=== PATIENT | female | born 1950 | race Caucasian/White ===

== ENCOUNTER 2019-04-20 11:38 | Emergency (ER) | payer BC ==
[2019-04-20 12:44] VITALS: BP 105/88
--- NOTE | 2019-04-20 12:57 | UC ---
Hand/Wrist HPI - HPI Summary HPI Summary: 69-year-old female presents with left wrist pain. Patient was picking up tree limbs in her yard, pulled on one and fell onto her left wrist. Reporting 5/10 achy pain located in the distal wrist. No other injuries. - History Of Current Complaint Chief Complaint: UCUpperExtremity Stated Complaint: ARM INJURY Time Seen by Provider: 04/20/19 12:46 Hx Last Menstrual Period: MENOPAUSE Pain Intensity: 5 - Allergies/Home Medications Allergies/Adverse Reactions: Allergies Allergy/AdvReac Type Severity Reaction Status Date / Time codeine Allergy Vomiting Verified 04/20/19 12:53 ibuprofen [From Motrin] Allergy Vomiting Verified 04/20/19 12:53 potassium Allergy GI Upset Verified 04/20/19 12:53 BP MEDICINE Allergy Rash Uncoded 04/20/19 12:53 Home Medications: Home Medications Omeprazole 1 tab PO DAILY 04/20/19 [History Confirmed 04/20/19] PMH/Surg Hx/FS Hx/Imm Hx Cardiovascular History: Hypertension GI/ History: Gastroesophageal Reflux - Surgical History Surgical History: None - Family History Known Family History: Positive: Hypertension, Other - BREAST CANCER - Social History Alcohol Use: Occasionally Substance Use Type: None Smoking Status (MU): Never Smoked Tobacco Review of Systems All Other Systems Reviewed And Are Negative: Yes Musculoskeletal: Positive: Arthralgia Physical Exam - Summary Physical Exam Summary: General: Well appearing, no distress Cardiovascular: Skin is well perfused Pulmonary: No respiratory distress, no tachypnea Abdomen: Non-distended Skin: Ecchymosis to L palm MSK: LUE: No tenderness or deformities of the elbow or forearm, tenderness to distal radius with swelling. Motor: Opposition of thumb and first finger intact Able to cross first and second finger Able to extend thumb Able to flex and extend wrist Able to spread fingers Sensory: Sensation intact in 1st, 2nd, and 5th digits Pulse: 2+ radial pulse intact. Brisk cap refill. Psych: Normal affect Neuro: A&Ox3 Vital Signs: Initial Vital Signs Temp 36.6 C 04/20/19 12:41 Pulse 66 04/20/19 12:41 Resp 16 04/20/19 12:41 BP 105/88 04/20/19 12:41 Pulse Ox 98 04/20/19 12:41 Re-Evaluation - Re-Evaluation First Eval Re-Evaluation Time: 13:25 Change: Improved Comment: XR negative for acute fracture, patient will repeat x-ray in 2 weeks if she has persistent pain Hand/Wrist Course/Dx - Course Course Of Treatment: 69-year-old female presents with tenderness to the left distal radius, no snuffbox tenderness. Check a XR wrist for fracture - Differential Dx/Diagnosis Provider Diagnosis: Wrist pain, left Discharge - Sign-Out/Discharge Documenting (check all that apply): Patient Departure All imaging exams completed and their final reports reviewed: Yes - Discharge Plan Condition: Stable Disposition: HOME Patient Education Materials: Wrist Injury (ED) Referrals: Elvi Ackerman NP [Primary Care Provider] - Additional Instructions: You were seeen at urgent care for wrist pain. Your x-ray did not show any fractures. If you've persistent pain in 2 weeks please a repeat x-ray. If any lab work or imaging was not completed at the time of discharge, you will be called with any relevant results. Please seek medical attention or go to the emergency department for any worsening or concerning symptoms. Please follow up with your primary care doctor in 2-3 days. It was a pleasure taking care of you today. - Billing Disposition and Condition Condition: STABLE Disposition: Home
== END 2019-04-20 13:49 | disposition home or self-care (01) ==
LOC: UCEAST 11:38
DX: M25.532 Pain in left wrist (principal); I10 Essential (primary) hypertension; K21.9 Gastro-esophageal reflux disease without esophagitis; Z88.5 Allergy status to narcotic agent
CPT/HCPCS: 99212; G0463